=== PATIENT | female | born 1960 | race Caucasian/White ===

== ENCOUNTER → 2017-05-03 | Outpatient (CLI) | payer OTHER ==
--- NOTE | 2017-05-03 10:40 | RAD ---
Indication pain. AP and lateral views of the right knee were obtained. There is suspect mild bony demineralization. Significant degenerative changes involving the knee are not apparent on plain films. No acute bony finding is seen. Orthopedic hardware is partially visualized in the femoral diaphysis.
== END | disposition home or self-care (01) ==
LOC: RAD 08:32
PROVIDERS: ATTEND Family Medicine
DX: M17.11 Unilateral primary osteoarthritis, right knee (principal)
CPT/HCPCS: 73560